=== PATIENT | female | born 1970 | race Caucasian/White ===

== ENCOUNTER 2021-04-22 15:35 | Inpatient (IN) ==
[2021-04-22] MEDS ORDERED: cefTRIAXone 1,000 MG in Water for inj. (sterile) 10 ML IVP ONE (16:56)
[2021-04-22] MEDS ORDERED: 0.9 % Sodium Chloride 1,000 ML IVC ONE ×2 (16:56→23:15)
[2021-04-22] MEDS ORDERED: Azithromycin 500 MG in 0.9 % Sodium Chloride 250 ML IVPB ONE (16:56)
[2021-04-22] MEDS ORDERED: MetroNIDAZOLE 500 MG/100 ML 500 MG/100 ML BAG IVPB ONE (16:57)
[2021-04-22 17:36] LABS: Hematocrit 35.5 % (35.3-44.9); Hemoglobin 12.1 g/dL (11.5-15.4); Mean Corpuscular HGB Conc 34.1 g/dL (31.6-35.5); Mean Corpuscular Hemoglobin 28.3 pg (28.0-33.3); Mean Corpuscular Volume 82.9 fL (83.0-100.0); Mean Platelet Volume 10.1 fL (9.4-12.4); Platelet Count 142 K/mcL (140-400); Red Blood Count 4.28 M/mcL (3.82-4.97); Red Cell Distribution Width 13.1 % (11.5-14.5); White Blood Count 3.2 K/mcL (4.3-11.1)
[2021-04-22 17:44] LABS: INR 1.3; Prothrombin Time 14.4 Seconds (9.4-12.1)
[2021-04-22 17:46] LABS: Activated Partial Thrombo Time 37.2 Seconds (26.0-36.0)
[2021-04-22 17:58] LABS: BUN/Creatinine Ratio 14 (6-26); Blood Urea Nitrogen 19 mg/dL (6-20); Calcium 8.9 mg/dL (8.6-10.3); Carbon Dioxide 22 mEq/L (23-29); Chloride 95 mEq/L (98-107); Glucose 193 mg/dL (70-105); Osmolality,Calculated 284 (280-300); Potassium 3.2 mEq/L (3.5-5.1); Sodium 133 mEq/L (136-145); Troponin I < 0.03 ng/mL (< 0.04); eGFR For African Americans 51 (> 60); eGFR For Non-African Americans 42 (> 60)
[2021-04-22 18:11] LABS: Lymphocytes # 0.8 K/mcL (0.6-4.6); Monocytes # 0.1 K/mcL (0.0-1.3); Neutrophils # 2.3 K/mcL (1.6-8.9); Reactive Lymphocytes Present (Not Present)
[2021-04-22 18:12] LABS: Platelet Estimate Normal (Normal); Toxic Granulation Present (Not Present)
[2021-04-22 19:56] LABS: Amorphous Sediment,Urine Few per hpf (None-Few); Bilirubin,Urine Negative (Negative); Blood,Urine Trace (Negative); Clarity,Urine Turbid (Clear); Color,Urine Yellow (Yellow); Glucose,Urine (UA) Normal (Normal); Ketones,Urine 10 mg/dL (Negative); Leukocyte Esterase,Urine Negative (Negative); Mucus,Urine Few per lpf (None-Few); Nitrite,Urine Negative (Negative); PH,Urine 5.5 pH Units (5.0-8.0); Protein,Urine 200 mg/dL (Neg-Trace); Specific Gravity,Urine 1.021 (1.010-1.025); Squamous Epithelial Cell,Urine Few per hpf (None-Few); Urobilinogen,Urine Normal (Normal); WBC,Urine 0-3 per hpf (0-3)
[2021-04-22] MEDS ORDERED: Naloxone 0.4 MG/ML INJ IVP PRN (20:50)
[2021-04-22] MEDS ORDERED: Melatonin 3 MG TABLET PO PRN (20:50)
[2021-04-22 21:31] LABS: Alanine Aminotransferase 45 Units/L (7-52); Albumin/Globulin Ratio 1.1 (1.1-2.2); Alkaline Phosphatase 82 Units/L (34-104); Aspartate Amino Transferase 70 Units/L (13-39); Bilirubin,Direct 0.3 mg/dL (0.0-0.2); Bilirubin,Indirect 0.2 mg/dL (0.0-1.0); Bilirubin,Total 0.5 mg/dL (0.3-1.0); Globulin 3.7 g/dL (2.4-3.5); Total Protein 7.7 g/dL (6.4-8.9)
[2021-04-22] MEDS ORDERED: *HR* Dextrose 50 % in Water (Syg) 50 ML SYRINGE IVP PRN (22:47)
[2021-04-22] MEDS ORDERED: D5% in Water 1,000 ML IVC PRN (22:47)
[2021-04-22] MEDS ORDERED: Dextrose Gel 15 GM/37.5 ML TUBE PO PRN ×2 (22:47)
[2021-04-22] MEDS ORDERED: 0.9 % Sodium Chloride 1,000 ML IVC SCH (23:15)
[2021-04-23 01:27] LABS: Basophils % 0.6 %; Hematocrit 30.2 % (35.3-44.9); Immature Granulocytes % 0.6 % (0-4); Lymphocytes # 0.5 K/mcL (0.6-4.6); Lymphocytes % 29.3 %; Mean Corpuscular HGB Conc 31.1 g/dL (31.6-35.5); Mean Corpuscular Hemoglobin 26.9 pg (28.0-33.3); Mean Corpuscular Volume 86.3 fL (83.0-100.0); Mean Platelet Volume 9.5 fL (9.4-12.4); Monocytes # 0.1 K/mcL (0.0-1.3); Monocytes % 5.5 %; Neutrophils # 1.2 K/mcL (1.6-8.9); Platelet Count 110 K/mcL (140-400); Red Cell Distribution Width 13.2 % (11.5-14.5); White Blood Count 1.8 K/mcL (4.3-11.1)
[2021-04-23 01:28] LABS: Hemoglobin 9.4 g/dL (11.5-15.4)
[2021-04-23 01:43] LABS: Calcium 7.4 mg/dL (8.6-10.3); Potassium 3.9 mEq/L (3.5-5.1)
[2021-04-23] MEDS ORDERED: Calcium Chloride 1,000 MG in 0.9 % Sodium Chloride 100 ML IVPB ONE (02:01)
[2021-04-23 02:03] LABS: Platelet Estimate Slight Decrease (Normal); Reactive Lymphocytes Present (Not Present); Toxic Granulation Present (Not Present)
[2021-04-23] MEDS ORDERED: *HR* Enoxaparin 40 MG/0.4 ML SYRINGE SQ SCH (06:00)
[2021-04-23 07:06] LABS: Ferritin 281 ng/mL (10-120); Iron 17 mcg/dL (50-170)
[2021-04-23 10:05] LABS: Folate > 22.3 ng/mL (3.0-16.0); Vitamin B12 1109 pg/mL (250-1100); Vitamin D 25 Hydroxy 64 ng/mL (30-80)
[2021-04-23] MEDS: Metoprolol XL (24 HR) Succ 50 MG TAB.ER.24H PO SCH (10:30)
[2021-04-23] MEDS: Gabapentin 100 MG CAPSULE PO SCH ×3 (10:31→21:54)
[2021-04-23] MEDS: Azithromycin 500 MG in 0.9 % Sodium Chloride 250 ML IVPB SCH (10:32)
[2021-04-23] MEDS: cefTRIAXone 1,000 MG in Water for inj. (sterile) 10 ML IVP SCH (10:34)
[2021-04-23] MEDS: Insulin LISPRO 300 UNITS/3 ML VIAL SUBQ SCH ×4 (10:34→21:57)
[2021-04-23] MEDS: Famotidine 20 MG TABLET PO SCH (21:55)
[2021-04-23] MEDS: Benzonatate 100 MG CAPSULE PO PRN (23:15)
[2021-04-23] MEDS: Acetaminophen 325 MG TABLET PO PRN (23:35)
[2021-04-24] MEDS: cefTRIAXone 1,000 MG in Water for inj. (sterile) 10 ML IVP SCH (07:52)
[2021-04-24] MEDS: Gabapentin 100 MG CAPSULE PO SCH ×3 (07:52→20:58)
[2021-04-24] MEDS: Metoprolol XL (24 HR) Succ 50 MG TAB.ER.24H PO SCH (07:52)
[2021-04-24] MEDS: Azithromycin 500 MG in 0.9 % Sodium Chloride 250 ML IVPB SCH (07:54)
[2021-04-24] MEDS: Insulin LISPRO 300 UNITS/3 ML VIAL SUBQ SCH ×4 (07:59→20:57)
[2021-04-24] MEDS: Benzonatate 100 MG CAPSULE PO PRN (12:01)
[2021-04-24] MEDS: Acetaminophen 325 MG TABLET PO PRN (12:01)
[2021-04-24] MEDS: Famotidine 20 MG TABLET PO SCH (20:58)
[2021-04-25 06:56] LABS: Hematocrit 31.1 % (35.3-44.9); Hemoglobin 9.7 g/dL (11.5-15.4); Immature Granulocytes % 1.1 % (0-4); Lymphocytes # 0.5 K/mcL (0.6-4.6); Mean Corpuscular HGB Conc 31.2 g/dL (31.6-35.5); Mean Corpuscular Hemoglobin 26.8 pg (28.0-33.3); Mean Corpuscular Volume 85.9 fL (83.0-100.0); Mean Platelet Volume 9.7 fL (9.4-12.4); Monocytes # 0.1 K/mcL (0.0-1.3); Neutrophils # 2.8 K/mcL (1.6-8.9); Platelet Count 163 K/mcL (140-400); Red Blood Count 3.62 M/mcL (3.82-4.97); Red Cell Distribution Width 13.2 % (11.5-14.5); Segmented Neutrophils % 80.9 %
[2021-04-25 07:07] LABS: % Iron Saturation 7 % (15-50); Transferrin 176 mg/dL (200-400)
[2021-04-25 07:15] LABS: White Blood Count 3.5 K/mcL (4.3-11.1)
[2021-04-25 07:19] LABS: BUN/Creatinine Ratio 24 (6-26); Blood Urea Nitrogen 24 mg/dL (6-20); Calcium 8.7 mg/dL (8.6-10.3); Carbon Dioxide 26 mEq/L (23-29); Chloride 105 mEq/L (98-107); Glucose 230 mg/dL (70-105); Osmolality,Calculated 301 (280-300); Potassium 3.9 mEq/L (3.5-5.1); Sodium 140 mEq/L (136-145); eGFR For African Americans > 60 (> 60); eGFR For Non-African Americans 58 (> 60)
[2021-04-25] MEDS: Metoprolol XL (24 HR) Succ 50 MG TAB.ER.24H PO SCH (09:00)
[2021-04-25] MEDS: Gabapentin 100 MG CAPSULE PO SCH ×3 (09:00→19:35)
[2021-04-25] MEDS: Insulin LISPRO 300 UNITS/3 ML VIAL SUBQ SCH ×4 (09:09→19:46)
[2021-04-25] MEDS: Acetaminophen 325 MG TABLET PO PRN (09:12)
[2021-04-25] MEDS: cefTRIAXone 1,000 MG in Water for inj. (sterile) 10 ML IVP SCH (09:16)
[2021-04-25] MEDS: Azithromycin 500 MG in 0.9 % Sodium Chloride 250 ML IVPB SCH (09:17)
[2021-04-25] MEDS: Famotidine 20 MG TABLET PO SCH (19:35)
[2021-04-26 05:19] LABS: Hemoglobin 9.5 g/dL (11.5-15.4); Immature Granulocytes % 0.7 % (0-4); Lymphocytes # 0.5 K/mcL (0.6-4.6); Lymphocytes % 11.6 %; Mean Corpuscular HGB Conc 32.8 g/dL (31.6-35.5); Mean Corpuscular Hemoglobin 27.9 pg (28.0-33.3); Mean Platelet Volume 9.6 fL (9.4-12.4); Monocytes # 0.2 K/mcL (0.0-1.3); Monocytes % 4.2 %; Neutrophils # 3.4 K/mcL (1.6-8.9); Platelet Count 191 K/mcL (140-400); Red Blood Count 3.41 M/mcL (3.82-4.97); Red Cell Distribution Width 13.2 % (11.5-14.5); Segmented Neutrophils % 83.5 %; White Blood Count 4.1 K/mcL (4.3-11.1)
[2021-04-26] MEDS: Gabapentin 100 MG CAPSULE PO SCH ×3 (08:31→21:05)
[2021-04-26] MEDS: Metoprolol XL (24 HR) Succ 50 MG TAB.ER.24H PO SCH (08:31)
[2021-04-26] MEDS: Insulin LISPRO 300 UNITS/3 ML VIAL SUBQ SCH ×4 (08:32→21:05)
[2021-04-26] MEDS: cefTRIAXone 1,000 MG in Water for inj. (sterile) 10 ML IVP SCH (08:32)
[2021-04-26] MEDS: Azithromycin 500 MG in 0.9 % Sodium Chloride 250 ML IVPB SCH (08:33)
[2021-04-26] MEDS: Benzonatate 100 MG CAPSULE PO PRN ×2 (09:08→19:11)
[2021-04-26] MEDS: Acetaminophen 325 MG TABLET PO PRN (09:08)
[2021-04-26] MEDS ORDERED: Isovue-370 500 ML BOTTLE IVP ONE (09:29)
[2021-04-26] MEDS: Famotidine 20 MG TABLET PO SCH (21:04)
[2021-04-27 07:22] LABS: Basophils % 0.3 %; Hematocrit 31.5 % (35.3-44.9); Hemoglobin 10.1 g/dL (11.5-15.4); Immature Granulocytes % 1.6 % (0-4); Lymphocytes # 0.7 K/mcL (0.6-4.6); Lymphocytes % 17.2 %; Mean Corpuscular HGB Conc 32.1 g/dL (31.6-35.5); Mean Corpuscular Hemoglobin 27.2 pg (28.0-33.3); Mean Corpuscular Volume 84.9 fL (83.0-100.0); Mean Platelet Volume 9.4 fL (9.4-12.4); Monocytes # 0.2 K/mcL (0.0-1.3); Neutrophils # 2.9 K/mcL (1.6-8.9); Platelet Count 236 K/mcL (140-400); Red Blood Count 3.71 M/mcL (3.82-4.97); Red Cell Distribution Width 13.2 % (11.5-14.5); Segmented Neutrophils % 75.9 %; White Blood Count 3.8 K/mcL (4.3-11.1)
[2021-04-27] MEDS ORDERED: Furosemide 20 MG/2 ML VIAL IVP ONE (07:44)
[2021-04-27 07:49] LABS: BUN/Creatinine Ratio 31 (6-26); Blood Urea Nitrogen 30 mg/dL (6-20); Calcium 8.8 mg/dL (8.6-10.3); Carbon Dioxide 25 mEq/L (23-29); Chloride 107 mEq/L (98-107); Glucose 189 mg/dL (70-105); Osmolality,Calculated 303 (280-300); Potassium 3.8 mEq/L (3.5-5.1); Sodium 141 mEq/L (136-145); eGFR For African Americans > 60 (> 60); eGFR For Non-African Americans > 60 (> 60)
[2021-04-27] MEDS: Insulin LISPRO 300 UNITS/3 ML VIAL SUBQ SCH ×4 (10:32→22:05)
[2021-04-27] MEDS: cefTRIAXone 1,000 MG in Water for inj. (sterile) 10 ML IVP SCH (10:53)
[2021-04-27] MEDS: Azithromycin 500 MG in 0.9 % Sodium Chloride 250 ML IVPB SCH (10:54)
[2021-04-27] MEDS: Gabapentin 100 MG CAPSULE PO SCH ×4 (10:55→22:00)
[2021-04-27] MEDS: Metoprolol XL (24 HR) Succ 50 MG TAB.ER.24H PO SCH ×2 (10:55→11:35)
[2021-04-27] MEDS: Budesonide/Formoterol 160/4.5 1 PUFF INH IH SCH ×2 (10:57→20:36)
[2021-04-27] MEDS: Acetaminophen 325 MG TABLET PO PRN (17:38)
[2021-04-27] MEDS: Benzonatate 100 MG CAPSULE PO PRN (17:39)
[2021-04-27] MEDS: Famotidine 20 MG TABLET PO SCH (22:00)
[2021-04-28 01:17] LABS: Basophils % 0.3 %; Hematocrit 29.9 % (35.3-44.9); Hemoglobin 9.7 g/dL (11.5-15.4); Immature Granulocytes % 4.7 % (0-4); Lymphocytes # 0.5 K/mcL (0.6-4.6); Lymphocytes % 17.3 %; Mean Corpuscular HGB Conc 32.4 g/dL (31.6-35.5); Mean Corpuscular Volume 86.2 fL (83.0-100.0); Mean Platelet Volume 9.1 fL (9.4-12.4); Monocytes # 0.2 K/mcL (0.0-1.3); Monocytes % 5.3 %; Neutrophils # 2.2 K/mcL (1.6-8.9); Platelet Count 236 K/mcL (140-400); Red Blood Count 3.47 M/mcL (3.82-4.97); Red Cell Distribution Width 13.2 % (11.5-14.5); Segmented Neutrophils % 72.4 %
[2021-04-28 04:46] LABS: Alanine Aminotransferase 167 Units/L (7-52); Albumin 3.1 g/dL (3.5-5.7); Alkaline Phosphatase 116 Units/L (34-104); Aspartate Amino Transferase 106 Units/L (13-39); BUN/Creatinine Ratio 36 (6-26); Bilirubin,Total 0.3 mg/dL (0.3-1.0); Blood Urea Nitrogen 34 mg/dL (6-20); Calcium 8.5 mg/dL (8.6-10.3); Carbon Dioxide 23 mEq/L (23-29); Chloride 107 mEq/L (98-107); Globulin 3.2 g/dL (2.4-3.5); Glucose 203 mg/dL (70-105); Osmolality,Calculated 303 (280-300); Potassium 4.1 mEq/L (3.5-5.1); Sodium 140 mEq/L (136-145); Total Protein 6.3 g/dL (6.4-8.9); eGFR For African Americans > 60 (> 60); eGFR For Non-African Americans > 60 (> 60)
[2021-04-28] MEDS: Metoprolol XL (24 HR) Succ 50 MG TAB.ER.24H PO SCH (07:42)
[2021-04-28] MEDS: cefTRIAXone 1,000 MG in Water for inj. (sterile) 10 ML IVP SCH (07:42)
[2021-04-28] MEDS: Gabapentin 100 MG CAPSULE PO SCH ×4 (07:42→21:52)
[2021-04-28] MEDS: Azithromycin 500 MG in 0.9 % Sodium Chloride 250 ML IVPB SCH (07:44)
[2021-04-28] MEDS: Insulin LISPRO 300 UNITS/3 ML VIAL SUBQ SCH ×4 (07:54→21:52)
[2021-04-28] MEDS: Budesonide/Formoterol 160/4.5 1 PUFF INH IH SCH ×2 (10:44→19:39)
[2021-04-28] MEDS: Benzonatate 100 MG CAPSULE PO PRN (17:07)
[2021-04-28] MEDS: Famotidine 20 MG TABLET PO SCH (21:52)
[2021-04-29 01:24] LABS: Hematocrit 30.5 % (35.3-44.9); Hemoglobin 10.1 g/dL (11.5-15.4); Immature Granulocytes % 1.1 % (0-4); Lymphocytes # 0.5 K/mcL (0.6-4.6); Lymphocytes % 14.2 %; Mean Corpuscular HGB Conc 33.1 g/dL (31.6-35.5); Mean Corpuscular Hemoglobin 27.7 pg (28.0-33.3); Mean Corpuscular Volume 83.6 fL (83.0-100.0); Mean Platelet Volume 8.9 fL (9.4-12.4); Monocytes # 0.1 K/mcL (0.0-1.3); Monocytes % 3.4 %; Neutrophils # 3.1 K/mcL (1.6-8.9); Platelet Count 298 K/mcL (140-400); Red Blood Count 3.65 M/mcL (3.82-4.97); Red Cell Distribution Width 12.9 % (11.5-14.5); Segmented Neutrophils % 81.3 %; White Blood Count 3.8 K/mcL (4.3-11.1)
[2021-04-29] MEDS: Budesonide/Formoterol 160/4.5 1 PUFF INH IH SCH ×2 (08:15→20:02)
[2021-04-29] MEDS: Gabapentin 100 MG CAPSULE PO SCH ×3 (08:30→21:09)
[2021-04-29] MEDS: Azithromycin 500 MG in 0.9 % Sodium Chloride 250 ML IVPB SCH (08:30)
[2021-04-29] MEDS: Insulin LISPRO 300 UNITS/3 ML VIAL SUBQ SCH ×4 (08:30→21:09)
[2021-04-29] MEDS: Metoprolol XL (24 HR) Succ 50 MG TAB.ER.24H PO SCH (08:30)
[2021-04-29] MEDS: cefTRIAXone 1,000 MG in Water for inj. (sterile) 10 ML IVP SCH (08:50)
[2021-04-29] MEDS: Famotidine 20 MG TABLET PO SCH (21:06)
[2021-04-30 06:16] LABS: Basophils % 0.2 %; Hematocrit 31.7 % (35.3-44.9); Hemoglobin 10.4 g/dL (11.5-15.4); Immature Granulocytes % 1.7 % (0-4); Lymphocytes # 0.7 K/mcL (0.6-4.6); Lymphocytes % 17.6 %; Mean Corpuscular HGB Conc 32.8 g/dL (31.6-35.5); Mean Corpuscular Hemoglobin 27.6 pg (28.0-33.3); Mean Corpuscular Volume 84.1 fL (83.0-100.0); Mean Platelet Volume 8.8 fL (9.4-12.4); Monocytes # 0.1 K/mcL (0.0-1.3); Monocytes % 2.9 %; Neutrophils # 3.3 K/mcL (1.6-8.9); Platelet Count 255 K/mcL (140-400); Red Blood Count 3.77 M/mcL (3.82-4.97); Segmented Neutrophils % 77.6 %; White Blood Count 4.2 K/mcL (4.3-11.1)
[2021-04-30 06:42] LABS: BUN/Creatinine Ratio 31 (6-26); Blood Urea Nitrogen 30 mg/dL (6-20); Calcium 8.7 mg/dL (8.6-10.3); Carbon Dioxide 26 mEq/L (23-29); Chloride 108 mEq/L (98-107); Glucose 126 mg/dL (70-105); Osmolality,Calculated 300 (280-300); Potassium 3.9 mEq/L (3.5-5.1); Sodium 141 mEq/L (136-145); eGFR For African Americans > 60 (> 60); eGFR For Non-African Americans 60 (> 60)
[2021-04-30] MEDS: Insulin LISPRO 300 UNITS/3 ML VIAL SUBQ SCH ×4 (07:13→20:02)
[2021-04-30] MEDS: Gabapentin 100 MG CAPSULE PO SCH ×3 (08:39→20:01)
[2021-04-30] MEDS: Azithromycin 500 MG in 0.9 % Sodium Chloride 250 ML IVPB SCH (08:39)
[2021-04-30] MEDS: Metoprolol XL (24 HR) Succ 50 MG TAB.ER.24H PO SCH (08:39)
[2021-04-30] MEDS ORDERED: Isovue-370 500 ML BOTTLE IVP ONE (09:02)
[2021-04-30] MEDS ORDERED: *HR* Enoxaparin 30 MG/0.3 ML SYRINGE SQ SCH (09:04)
[2021-04-30] MEDS: Budesonide/Formoterol 160/4.5 1 PUFF INH IH SCH ×2 (09:15→20:54)
[2021-04-30] MEDS: cefTRIAXone 1,000 MG in Water for inj. (sterile) 10 ML IVP SCH (09:29)
[2021-04-30] MEDS ORDERED: *HR* Heparin 5,000 UNIT/ML VIAL IVP ONE (15:19)
[2021-04-30] MEDS ORDERED: *HR* Heparin 5,000 UNIT/ML VIAL IVP PRN ×2 (15:19)
[2021-04-30 16:47] LABS: Heparin anti-factor XA UFH 0.06 IU/mL (0.30-0.70); INR 1.2; Prothrombin Time 12.9 Seconds (9.4-12.1)
[2021-04-30 16:49] LABS: Activated Partial Thrombo Time 25.7 Seconds (26.0-36.0)
[2021-04-30] MEDS ORDERED: *HR* Enoxaparin 80 MG/0.8 ML SYRINGE SQ SCH (18:00)
[2021-04-30] MEDS: Heparin 25,000 UNIT/250 ML 25,000 UNIT/250 ML IV.SOLN IVC SCH (18:03)
[2021-04-30] MEDS: Famotidine 20 MG TABLET PO SCH (20:01)
[2021-04-30] MEDS ORDERED: *HR* LORazepam 2 MG/ML VIAL IVP ONE (22:19)
[2021-05-01 02:24] LABS: Basophils % 0.3 %; Hematocrit 31.1 % (35.3-44.9); Immature Granulocytes % 2.8 % (0-4); Lymphocytes # 0.4 K/mcL (0.6-4.6); Lymphocytes % 10.7 %; Mean Corpuscular HGB Conc 32.2 g/dL (31.6-35.5); Mean Corpuscular Volume 84.1 fL (83.0-100.0); Mean Platelet Volume 9.4 fL (9.4-12.4); Monocytes # 0.1 K/mcL (0.0-1.3); Platelet Count 275 K/mcL (140-400); Segmented Neutrophils % 84.2 %; White Blood Count 3.6 K/mcL (4.3-11.1)
[2021-05-01 02:41] LABS: BUN/Creatinine Ratio 37 (6-26); Blood Urea Nitrogen 36 mg/dL (6-20); Calcium 8.9 mg/dL (8.6-10.3); Carbon Dioxide 22 mEq/L (23-29); Chloride 106 mEq/L (98-107); Glucose 259 mg/dL (70-105); Osmolality,Calculated 303 (280-300); Potassium 4.1 mEq/L (3.5-5.1); Sodium 138 mEq/L (136-145); eGFR For African Americans > 60 (> 60); eGFR For Non-African Americans 60 (> 60)
[2021-05-01] MEDS ORDERED: *HR* LORazepam 2 MG/ML VIAL IVP ONE (04:13)
[2021-05-01] MEDS ORDERED: *HR* Enoxaparin 30 MG/0.3 ML SYRINGE SQ SCH (06:00)
[2021-05-01 09:22] LABS: Albumin 3.2 g/dL (3.5-5.7); Albumin/Globulin Ratio 0.9 (1.1-2.2); Bilirubin,Direct 0.2 mg/dL (0.0-0.2); Bilirubin,Indirect 0.2 mg/dL (0.0-1.0); Bilirubin,Total 0.4 mg/dL (0.3-1.0); Globulin 3.6 g/dL (2.4-3.5); Total Protein 6.8 g/dL (6.4-8.9)
[2021-05-01] MEDS: Insulin LISPRO 300 UNITS/3 ML VIAL SUBQ SCH ×4 (10:17→20:28)
[2021-05-01] MEDS: Azithromycin 500 MG in 0.9 % Sodium Chloride 250 ML IVPB SCH (10:36)
[2021-05-01] MEDS: cefTRIAXone 1,000 MG in Water for inj. (sterile) 10 ML IVP SCH (10:38)
[2021-05-01] MEDS: Gabapentin 100 MG CAPSULE PO SCH ×3 (10:38→20:08)
[2021-05-01] MEDS: Metoprolol XL (24 HR) Succ 50 MG TAB.ER.24H PO SCH (10:38)
[2021-05-01] MEDS: Budesonide/Formoterol 160/4.5 1 PUFF INH IH SCH ×2 (11:08→21:04)
[2021-05-01] MEDS: Famotidine 20 MG TABLET PO SCH (20:08)
[2021-05-01] MEDS: Heparin 25,000 UNIT/250 ML 25,000 UNIT/250 ML IV.SOLN IVC SCH (22:54)
[2021-05-02 06:33] LABS: Hematocrit 31.9 % (35.3-44.9); Hemoglobin 10.6 g/dL (11.5-15.4); Immature Granulocytes % 1.2 % (0-4); Lymphocytes # 0.6 K/mcL (0.6-4.6); Lymphocytes % 11.4 %; Mean Corpuscular HGB Conc 33.2 g/dL (31.6-35.5); Mean Corpuscular Hemoglobin 27.7 pg (28.0-33.3); Mean Corpuscular Volume 83.3 fL (83.0-100.0); Mean Platelet Volume 9.3 fL (9.4-12.4); Monocytes # 0.2 K/mcL (0.0-1.3); Monocytes % 3.9 %; Platelet Count 265 K/mcL (140-400); Red Blood Count 3.83 M/mcL (3.82-4.97); Red Cell Distribution Width 12.8 % (11.5-14.5); Segmented Neutrophils % 83.5 %; White Blood Count 4.8 K/mcL (4.3-11.1)
[2021-05-02 06:42] LABS: BUN/Creatinine Ratio 36 (6-26); Blood Urea Nitrogen 32 mg/dL (6-20); Carbon Dioxide 24 mEq/L (23-29); Chloride 108 mEq/L (98-107); Glucose 170 mg/dL (70-105); Osmolality,Calculated 301 (280-300); Sodium 140 mEq/L (136-145); eGFR For African Americans > 60 (> 60); eGFR For Non-African Americans > 60 (> 60)
[2021-05-02] MEDS: Insulin LISPRO 300 UNITS/3 ML VIAL SUBQ SCH ×5 (08:37→21:52)
[2021-05-02] MEDS: Metoprolol XL (24 HR) Succ 50 MG TAB.ER.24H PO SCH (08:38)
[2021-05-02] MEDS: Aspirin 81 MG TAB.CHEW PO SCH (08:38)
[2021-05-02] MEDS: Gabapentin 100 MG CAPSULE PO SCH ×3 (08:38→21:51)
[2021-05-02] MEDS: Budesonide/Formoterol 160/4.5 1 PUFF INH IH SCH ×2 (11:02→20:07)
[2021-05-02 18:29] LABS: ABG Base Excess -5 mEq/L (-2 to 3); ABG HCO3 18 mEq/L (21-27); ABG Oxygen Saturation 85 % (95-98); ABG PCO2 26 mmHg (35-45); ABG PH 7.44 pH Units (7.32-7.45); ABG PO2 47 mmHg (85-104); ABG TCO2 19 mEq/L (20-26); Blood Gas Modality NIV
[2021-05-02] MEDS ORDERED: Insulin DETEMIR 100 UNIT/ML X5UNITS SUBQ SCH (21:00)
[2021-05-02] MEDS ORDERED: Saline Nasal Spray 44 ML BOTTLE NS PRN (21:38)
[2021-05-02] MEDS: Famotidine 20 MG TABLET PO SCH (21:51)
[2021-05-02] MEDS: Acetaminophen 325 MG TABLET PO PRN (22:38)
[2021-05-03] MEDS: *HR* Enoxaparin 40 MG/0.4 ML SYRINGE SQ SCH (05:38)
[2021-05-03] MEDS: Budesonide/Formoterol 160/4.5 1 PUFF INH IH SCH ×2 (08:19→20:03)
[2021-05-03] MEDS: Gabapentin 100 MG CAPSULE PO SCH (10:31)
[2021-05-03] MEDS: Aspirin 81 MG TAB.CHEW PO SCH (10:31)
[2021-05-03] MEDS: Metoprolol XL (24 HR) Succ 50 MG TAB.ER.24H PO SCH (10:31)
[2021-05-03] MEDS: Insulin LISPRO 300 UNITS/3 ML VIAL SUBQ SCH ×4 (10:36→22:26)
[2021-05-03] MEDS ORDERED: Insulin DETEMIR 100 UNIT/ML X5UNITS SUBQ SCH (21:00)
[2021-05-03] MEDS: Famotidine 20 MG TABLET PO SCH (22:26)
[2021-05-04] MEDS: *HR* Enoxaparin 40 MG/0.4 ML SYRINGE SQ SCH (04:36)
[2021-05-04] MEDS: Budesonide/Formoterol 160/4.5 1 PUFF INH IH SCH ×2 (08:19→19:50)
[2021-05-04] MEDS: Insulin LISPRO 300 UNITS/3 ML VIAL SUBQ SCH ×4 (10:42→20:41)
[2021-05-04] MEDS: Aspirin 81 MG TAB.CHEW PO SCH (10:43)
[2021-05-04] MEDS: Metoprolol XL (24 HR) Succ 50 MG TAB.ER.24H PO SCH (10:48)
[2021-05-04] MEDS: Famotidine 20 MG TABLET PO SCH (20:35)
[2021-05-04] MEDS: Insulin DETEMIR 100 UNIT/ML X5UNITS SUBQ SCH (20:41)
[2021-05-05] MEDS: *HR* Enoxaparin 40 MG/0.4 ML SYRINGE SQ SCH (06:17)
[2021-05-05] MEDS: Insulin LISPRO 300 UNITS/3 ML VIAL SUBQ SCH ×4 (08:55→20:59)
[2021-05-05] MEDS: Metoprolol XL (24 HR) Succ 50 MG TAB.ER.24H PO SCH ×2 (08:56→09:04)
[2021-05-05] MEDS: Aspirin 81 MG TAB.CHEW PO SCH (08:56)
[2021-05-05 10:30] LABS: Hematocrit 34.9 % (35.3-44.9); Hemoglobin 11.3 g/dL (11.5-15.4); Immature Granulocytes % 0.6 % (0-4); Lymphocytes # 0.7 K/mcL (0.6-4.6); Lymphocytes % 8.8 %; Mean Corpuscular HGB Conc 32.4 g/dL (31.6-35.5); Mean Corpuscular Hemoglobin 27.4 pg (28.0-33.3); Mean Corpuscular Volume 84.7 fL (83.0-100.0); Monocytes # 0.3 K/mcL (0.0-1.3); Monocytes % 3.2 %; Neutrophils # 6.8 K/mcL (1.6-8.9); Platelet Count 256 K/mcL (140-400); Red Blood Count 4.12 M/mcL (3.82-4.97); Red Cell Distribution Width 13.2 % (11.5-14.5); Segmented Neutrophils % 87.4 %
[2021-05-05 10:40] LABS: White Blood Count 7.8 K/mcL (4.3-11.1)
[2021-05-05 10:50] LABS: Calcium 8.8 mg/dL (8.6-10.3); Potassium 3.9 mEq/L (3.5-5.1)
[2021-05-05] MEDS: Budesonide/Formoterol 160/4.5 1 PUFF INH IH SCH ×2 (11:22→20:03)
[2021-05-05] MEDS: Acetaminophen 325 MG TABLET PO PRN (14:56)
[2021-05-05] MEDS: Famotidine 20 MG TABLET PO SCH (20:55)
[2021-05-05] MEDS: Insulin DETEMIR 100 UNIT/ML X5UNITS SUBQ SCH (20:59)
[2021-05-06] MEDS: *HR* Enoxaparin 40 MG/0.4 ML SYRINGE SQ SCH (04:42)
[2021-05-06 06:17] LABS: Hematocrit 35.1 % (35.3-44.9); Immature Granulocytes % 0.7 % (0-4); Lymphocytes # 0.9 K/mcL (0.6-4.6); Lymphocytes % 11.3 %; Mean Corpuscular HGB Conc 31.3 g/dL (31.6-35.5); Mean Corpuscular Hemoglobin 26.6 pg (28.0-33.3); Mean Platelet Volume 9.4 fL (9.4-12.4); Monocytes # 0.3 K/mcL (0.0-1.3); Neutrophils # 6.4 K/mcL (1.6-8.9); Platelet Count 207 K/mcL (140-400); Red Blood Count 4.13 M/mcL (3.82-4.97); Red Cell Distribution Width 13.1 % (11.5-14.5); White Blood Count 7.7 K/mcL (4.3-11.1)
[2021-05-06 06:41] LABS: BUN/Creatinine Ratio 35 (6-26); Blood Urea Nitrogen 37 mg/dL (6-20); Calcium 8.8 mg/dL (8.6-10.3); Carbon Dioxide 25 mEq/L (23-29); Chloride 106 mEq/L (98-107); Glucose 112 mg/dL (70-105); Osmolality,Calculated 297 (280-300); Potassium 3.8 mEq/L (3.5-5.1); Sodium 139 mEq/L (136-145); eGFR For African Americans > 60 (> 60); eGFR For Non-African Americans 54 (> 60)
[2021-05-06] MEDS: Budesonide/Formoterol 160/4.5 1 PUFF INH IH SCH ×2 (08:10→21:41)
[2021-05-06] MEDS ORDERED: *HR* LORazepam 2 MG/ML VIAL IVP STA (08:25)
[2021-05-06] MEDS ORDERED: *HR* LORazepam 2 MG/ML VIAL ONE (08:25)
[2021-05-06] MEDS ORDERED: *HR* Heparin 5,000 UNIT/ML VIAL IVP PRN ×2 (09:23)
[2021-05-06] MEDS ORDERED: *HR* Heparin 5,000 UNIT/ML VIAL IVP ONE (09:23)
[2021-05-06] MEDS ORDERED: *HR* FentaNYL (PF) 100 MCG/2 ML VIAL IVP ONE (09:46)
[2021-05-06] MEDS ORDERED: 0.9 % Sodium Chloride 1,000 ML ONE (09:49)
[2021-05-06] MEDS: Insulin LISPRO 300 UNITS/3 ML VIAL SUBQ SCH ×2 (10:15→18:23)
[2021-05-06] MEDS: Aspirin 81 MG TAB.CHEW PO SCH (10:16)
[2021-05-06] MEDS: Metoprolol XL (24 HR) Succ 50 MG TAB.ER.24H PO SCH (10:16)
[2021-05-06] MEDS ORDERED: *HR* Midazolam HCl 2 MG/2 ML VIAL IVP ONE (12:23)
[2021-05-06] MEDS ORDERED: *HR* Midazolam HCl 5 MG/5 ML VIAL IVP ONE ×2 (12:23→13:30)
[2021-05-06] MEDS ORDERED: *HR* Propofol 200 MG/20 ML VIAL IVP ONE (12:23)
[2021-05-06] MEDS ORDERED: *HR* Etomidate 20 MG/10 ML AMPUL IVP ONE (12:23)
[2021-05-06] MEDS: Furosemide 40 MG/4 ML VIAL IVP SCH ×3 (12:37→20:59)
[2021-05-06] MEDS: FentaNYL (PF) 1,000 MCG/100 ML IV.SOLN IVC SCH ×2 (13:17→17:03)
[2021-05-06] MEDS: Pantoprazole 40 MG VIAL IVP SCH (13:19)
[2021-05-06] MEDS: Heparin 25,000 UNIT/250 ML 25,000 UNIT/250 ML IV.SOLN IVC SCH (13:30)
[2021-05-06 13:50] LABS: ABG Base Excess -3 mEq/L (-2 to 3); ABG HCO3 21 mEq/L (21-27); ABG Oxygen Saturation 98 % (95-98); ABG PCO2 34 mmHg (35-45); ABG PH 7.41 pH Units (7.32-7.45); ABG PO2 95 mmHg (85-104); ABG TCO2 22 mEq/L (20-26); Blood Gas VT 380 cc
[2021-05-06] MEDS ORDERED: Artificial Tears SOLN 15 ML BOTTLE BOTH EYES PRN (14:00)
[2021-05-06 14:54] LABS: Amorphous Sediment,Urine Few per hpf (None-Few); Bacteria,Urine Few per hpf (None-Few); Bilirubin,Urine Negative (Negative); Blood,Urine Small (Negative); Clarity,Urine Ex.Turbid (Clear); Color,Urine Light-Orange (Yellow); Glucose,Urine (UA) Normal (Normal); Ketones,Urine 10 mg/dL (Negative); Leukocyte Esterase,Urine Negative (Negative); Mucus,Urine Few per lpf (None-Few); Nitrite,Urine Negative (Negative); Protein,Urine 100 mg/dL (Neg-Trace); RBC,Urine 0-3 per hpf (0-3); Specific Gravity,Urine 1.028 (1.010-1.025); Squamous Epithelial Cell,Urine Few per hpf (None-Few); Urobilinogen,Urine Normal (Normal); WBC,Urine 0-3 per hpf (0-3)
[2021-05-06] MEDS: Artificial Tears SOLN 15 ML BOTTLE BOTH EYES SCH ×2 (17:01→20:51)
[2021-05-06 20:44] LABS: Heparin anti-factor XA UFH 0.95 IU/mL (0.30-0.70)
[2021-05-06] MEDS: Chlorhexidine Rinse 15 ML MOUTHWASH MM SCH (20:55)
[2021-05-06] MEDS ORDERED: Furosemide 40 MG/4 ML VIAL IVP ONE (20:59)
[2021-05-06] MEDS: Insulin DETEMIR 100 UNIT/ML X5UNITS SUBQ SCH (21:05)
[2021-05-07] MEDS: Artificial Tears SOLN 15 ML BOTTLE BOTH EYES SCH ×7 (00:04→23:51)
[2021-05-07] MEDS: Insulin LISPRO 300 UNITS/3 ML VIAL SUBQ SCH ×5 (00:06→23:51)
[2021-05-07] MEDS: FentaNYL (PF) 1,000 MCG/100 ML IV.SOLN IVC SCH ×3 (01:05→18:47)
[2021-05-07 04:05] LABS: ABG Base Excess -2 mEq/L (-2 to 3); ABG HCO3 22 mEq/L (21-27); ABG Oxygen Saturation 96 % (95-98); ABG PCO2 36 mmHg (35-45); ABG PH 7.39 pH Units (7.32-7.45); ABG PO2 85 mmHg (85-104); ABG TCO2 23 mEq/L (20-26); Blood Gas Modality ASSIST CONTROL; Blood Gas VT 380 cc
[2021-05-07 04:25] LABS: VBG Ionized Calcium 1.01 mmol/L (1.15-1.35)
[2021-05-07] MEDS: Calcium Gluconate 1gm/50mL 1 GM/50 ML BAG IVPB SCH ×2 (05:00→05:31)
[2021-05-07 05:32] LABS: Phosphorous 6.3 mg/dL (2.7-4.5)
[2021-05-07 05:52] LABS: Hematocrit 25.9 % (35.3-44.9); Lymphocytes # 0.4 K/mcL (0.6-4.6); Lymphocytes % 6.9 %; Mean Corpuscular Hemoglobin 28.9 pg (28.0-33.3); Mean Corpuscular Volume 85.2 fL (83.0-100.0); Mean Platelet Volume 9.9 fL (9.4-12.4); Monocytes # 0.2 K/mcL (0.0-1.3); Monocytes % 3.7 %; Neutrophils # 4.5 K/mcL (1.6-8.9); Platelet Count 157 K/mcL (140-400); Red Blood Count 3.04 M/mcL (3.82-4.97); Red Cell Distribution Width 13.3 % (11.5-14.5); Segmented Neutrophils % 88.4 %; White Blood Count 5.1 K/mcL (4.3-11.1)
[2021-05-07 05:54] LABS: Hemoglobin 8.8 g/dL (11.5-15.4)
[2021-05-07 06:09] LABS: Magnesium 2.1 mg/dL (1.6-2.6); Potassium 3.7 mEq/L (3.5-5.1)
[2021-05-07] MEDS: Budesonide/Formoterol 160/4.5 1 PUFF INH IH SCH ×2 (07:24→20:34)
[2021-05-07] MEDS: Norepinephrine 4 MG/254 ML IV.SOLN IVC SCH ×3 (08:21→23:54)
[2021-05-07] MEDS: Chlorhexidine Rinse 15 ML MOUTHWASH MM SCH ×2 (09:03→21:55)
[2021-05-07] MEDS: Cholecalciferol (D-3) 1,000 UNIT (25MCG) TABLET PO SCH (09:03)
[2021-05-07] MEDS: Pantoprazole 40 MG VIAL IVP SCH (09:03)
[2021-05-07] MEDS: Aspirin 81 MG TAB.CHEW GTUBE SCH (09:03)
[2021-05-07] MEDS: Furosemide 40 MG/4 ML VIAL IVP SCH ×2 (09:03→21:56)
[2021-05-07 10:51] LABS: VBG Ionized Calcium 1.27 mmol/L (1.15-1.35)
[2021-05-07] MEDS: Heparin 25,000 UNIT/250 ML 25,000 UNIT/250 ML IV.SOLN IVC SCH ×2 (20:15→21:31)
[2021-05-07] MEDS: Insulin DETEMIR 100 UNIT/ML X5UNITS SUBQ SCH (21:56)
[2021-05-08] MEDS: FentaNYL (PF) 1,000 MCG/100 ML IV.SOLN IVC SCH ×4 (02:06→23:42)
[2021-05-08] MEDS: Artificial Tears SOLN 15 ML BOTTLE BOTH EYES SCH ×6 (03:40→23:38)
[2021-05-08 03:55] LABS: ABG Base Excess -2 mEq/L (-2 to 3); ABG HCO3 23 mEq/L (21-27); ABG Oxygen Saturation 97 % (95-98); ABG PCO2 38 mmHg (35-45); ABG PH 7.39 pH Units (7.32-7.45); ABG PO2 87 mmHg (85-104); ABG TCO2 24 mEq/L (20-26); Blood Gas Modality ASSIST CONTROL; Blood Gas VT 380 cc
[2021-05-08 04:20] LABS: VBG Ionized Calcium 1.11 mmol/L (1.15-1.35)
[2021-05-08 04:57] LABS: Basophils % 0.1 %; Hematocrit 35.4 % (35.3-44.9); Hemoglobin 11.6 g/dL (11.5-15.4); Immature Granulocytes % 0.6 % (0-4); Lymphocytes # 0.7 K/mcL (0.6-4.6); Lymphocytes % 7.9 %; Mean Corpuscular HGB Conc 32.8 g/dL (31.6-35.5); Mean Corpuscular Hemoglobin 27.5 pg (28.0-33.3); Mean Corpuscular Volume 83.9 fL (83.0-100.0); Mean Platelet Volume 9.7 fL (9.4-12.4); Monocytes # 0.3 K/mcL (0.0-1.3); Monocytes % 3.8 %; Neutrophils # 7.7 K/mcL (1.6-8.9); Platelet Count 264 K/mcL (140-400); Red Blood Count 4.22 M/mcL (3.82-4.97); Red Cell Distribution Width 13.4 % (11.5-14.5); Segmented Neutrophils % 87.6 %; White Blood Count 8.8 K/mcL (4.3-11.1)
[2021-05-08 05:08] LABS: Calcium 9.4 mg/dL (8.6-10.3); Magnesium 2.4 mg/dL (1.6-2.6); Phosphorous 7.1 mg/dL (2.7-4.5); Potassium 3.4 mEq/L (3.5-5.1)
[2021-05-08] MEDS: Insulin LISPRO 300 UNITS/3 ML VIAL SUBQ SCH ×4 (05:23→23:41)
[2021-05-08] MEDS ORDERED: Isovue-370 500 ML BOTTLE IVP ONE (06:32)
[2021-05-08] MEDS: Budesonide/Formoterol 160/4.5 1 PUFF INH IH SCH ×2 (07:32→20:47)
[2021-05-08] MEDS: Pantoprazole 40 MG VIAL IVP SCH (07:43)
[2021-05-08] MEDS: Chlorhexidine Rinse 15 ML MOUTHWASH MM SCH ×2 (07:43→19:47)
[2021-05-08] MEDS: Aspirin 81 MG TAB.CHEW GTUBE SCH (07:44)
[2021-05-08] MEDS: Furosemide 40 MG/4 ML VIAL IVP SCH ×2 (07:44→19:48)
[2021-05-08] MEDS: Cholecalciferol (D-3) 1,000 UNIT (25MCG) TABLET PO SCH (07:45)
[2021-05-08] MEDS ORDERED: Lidocaine -MPF 1% 5 ML AMPUL INFILT ONE (12:34)
[2021-05-08 13:17] LABS: Calcium 9.4 mg/dL (8.6-10.3); Potassium 3.9 mEq/L (3.5-5.1)
[2021-05-08] MEDS: Calcium Gluconate 1gm/50mL 1 GM/50 ML BAG IVPB SCH ×2 (14:23→14:55)
[2021-05-08] MEDS: Phenylephrine 50 MG in 0.9 % Sodium Chloride 250 ML IVC SCH (19:08)
[2021-05-08] MEDS: Norepinephrine 4 MG/254 ML IV.SOLN IVC SCH ×3 (19:34→23:41)
[2021-05-08] MEDS: Insulin DETEMIR 100 UNIT/ML X5UNITS SUBQ SCH (20:14)
[2021-05-09] MEDS: Artificial Tears SOLN 15 ML BOTTLE BOTH EYES SCH ×6 (03:04→23:34)
[2021-05-09 04:03] LABS: Hematocrit 33.8 % (35.3-44.9); Hemoglobin 10.9 g/dL (11.5-15.4); Mean Corpuscular HGB Conc 32.2 g/dL (31.6-35.5); Mean Corpuscular Hemoglobin 27.9 pg (28.0-33.3); Mean Corpuscular Volume 86.4 fL (83.0-100.0); Mean Platelet Volume 9.4 fL (9.4-12.4); Platelet Count 278 K/mcL (140-400); Red Blood Count 3.91 M/mcL (3.82-4.97); Red Cell Distribution Width 13.8 % (11.5-14.5)
[2021-05-09 04:10] LABS: ABG Base Excess -6 mEq/L (-2 to 3); ABG HCO3 20 mEq/L (21-27); ABG Oxygen Saturation 99 % (95-98); ABG PCO2 45 mmHg (35-45); ABG PH 7.27 pH Units (7.32-7.45); ABG PO2 131 mmHg (85-104); ABG TCO2 22 mEq/L (20-26); Blood Gas Modality ASSIST CONTROL; Blood Gas VT 380 cc
[2021-05-09 04:11] LABS: VBG Ionized Calcium 1.21 mmol/L (1.15-1.35)
[2021-05-09 04:15] LABS: White Blood Count 13.5 K/mcL (4.3-11.1)
[2021-05-09 04:22] LABS: Albumin 3.1 g/dL (3.5-5.7); Albumin/Globulin Ratio 0.8 (1.1-2.2); Bilirubin,Total 0.3 mg/dL (0.3-1.0); Calcium 9.6 mg/dL (8.6-10.3); Globulin 3.7 g/dL (2.4-3.5); Phosphorous 9.7 mg/dL (2.7-4.5); Potassium 3.8 mEq/L (3.5-5.1); Total Protein 6.8 g/dL (6.4-8.9)
[2021-05-09] MEDS: Insulin LISPRO 300 UNITS/3 ML VIAL SUBQ SCH ×5 (05:03→23:51)
[2021-05-09] MEDS: FentaNYL (PF) 1,000 MCG/100 ML IV.SOLN IVC SCH ×3 (05:04→18:56)
[2021-05-09 07:31] LABS: Magnesium 2.8 mg/dL (1.6-2.6)
[2021-05-09] MEDS: Budesonide/Formoterol 160/4.5 1 PUFF INH IH SCH ×2 (07:34→19:37)
[2021-05-09] MEDS: Cholecalciferol (D-3) 1,000 UNIT (25MCG) TABLET PO SCH (08:02)
[2021-05-09] MEDS: Pantoprazole 40 MG VIAL IVP SCH (08:02)
[2021-05-09] MEDS: Chlorhexidine Rinse 15 ML MOUTHWASH MM SCH ×2 (08:02→19:35)
[2021-05-09] MEDS: Aspirin 81 MG TAB.CHEW GTUBE SCH (08:02)
[2021-05-09] MEDS: Heparin 25,000 UNIT/250 ML 25,000 UNIT/250 ML IV.SOLN IVC SCH (10:54)
[2021-05-09] MEDS: Phenylephrine 50 MG in 0.9 % Sodium Chloride 250 ML IVC SCH (18:55)
[2021-05-09] MEDS: Norepinephrine 4 MG/254 ML IV.SOLN IVC SCH ×3 (18:57→23:52)
[2021-05-09] MEDS: Insulin DETEMIR 100 UNIT/ML X5UNITS SUBQ SCH (19:37)
[2021-05-10] MEDS: FentaNYL (PF) 1,000 MCG/100 ML IV.SOLN IVC SCH ×4 (02:31→22:04)
[2021-05-10 03:21] LABS: ABG Base Excess -3 mEq/L (-2 to 3); ABG HCO3 23 mEq/L (21-27); ABG Oxygen Saturation 98 % (95-98); ABG PCO2 45 mmHg (35-45); ABG PH 7.33 pH Units (7.32-7.45); ABG PO2 105 mmHg (85-104); ABG TCO2 25 mEq/L (20-26); Blood Gas Modality ASSIST CONTROL; Blood Gas VT 380 cc
[2021-05-10] MEDS: Artificial Tears SOLN 15 ML BOTTLE BOTH EYES SCH ×6 (03:26→23:34)
[2021-05-10] MEDS: Insulin LISPRO 300 UNITS/3 ML VIAL SUBQ SCH ×6 (03:27→23:34)
[2021-05-10 03:42] LABS: Hematocrit 30.2 % (35.3-44.9); Hemoglobin 9.5 g/dL (11.5-15.4); Mean Corpuscular HGB Conc 31.5 g/dL (31.6-35.5); Mean Corpuscular Hemoglobin 27.1 pg (28.0-33.3); Mean Platelet Volume 9.7 fL (9.4-12.4); Platelet Count 191 K/mcL (140-400); Red Blood Count 3.51 M/mcL (3.82-4.97); Red Cell Distribution Width 13.9 % (11.5-14.5); White Blood Count 11.7 K/mcL (4.3-11.1)
[2021-05-10 03:55] LABS: Heparin anti-factor XA UFH 0.43 IU/mL (0.30-0.70)
[2021-05-10 04:03] LABS: Albumin/Globulin Ratio 0.9 (1.1-2.2); Bilirubin,Total 0.3 mg/dL (0.3-1.0); Calcium 9.2 mg/dL (8.6-10.3); Globulin 3.3 g/dL (2.4-3.5); Magnesium 2.9 mg/dL (1.6-2.6); Phosphorous 5.4 mg/dL (2.7-4.5); Potassium 3.5 mEq/L (3.5-5.1); Total Protein 6.3 g/dL (6.4-8.9)
[2021-05-10 04:05] LABS: VBG Ionized Calcium 1.21 mmol/L (1.15-1.35)
[2021-05-10] MEDS: Chlorhexidine Rinse 15 ML MOUTHWASH MM SCH ×2 (08:20→20:38)
[2021-05-10] MEDS: Aspirin 81 MG TAB.CHEW GTUBE SCH (08:20)
[2021-05-10] MEDS: Pantoprazole 40 MG VIAL IVP SCH (08:20)
[2021-05-10] MEDS: Cholecalciferol (D-3) 1,000 UNIT (25MCG) TABLET PO SCH (08:20)
[2021-05-10] MEDS: Norepinephrine 4 MG/254 ML IV.SOLN IVC SCH (10:56)
[2021-05-10] MEDS: Budesonide/Formoterol 160/4.5 1 PUFF INH IH SCH ×2 (11:04→21:44)
[2021-05-10] MEDS: Heparin 25,000 UNIT/250 ML 25,000 UNIT/250 ML IV.SOLN IVC SCH (14:03)
[2021-05-10] MEDS ORDERED: Furosemide 40 MG/4 ML VIAL IVP ONE ×2 (14:05→21:15)
[2021-05-10] MEDS: Albumin 25% 25gram/100mL 25 GM/100 ML IV.SOLN IVC SCH ×2 (14:43→16:44)
[2021-05-10] MEDS ORDERED: *HR* Metoprolol 5 MG/5 ML VIAL IVP ONE ×4 (16:30→18:49)
[2021-05-10] MEDS: Cisatracurium 200 MG in 0.9 % Sodium Chloride 180 ML IVC SCH (19:48)
[2021-05-10 19:49] LABS: ABG Base Excess -4 mEq/L (-2 to 3); ABG HCO3 24 mEq/L (21-27); ABG Oxygen Saturation 76 % (95-98); ABG PCO2 54 mmHg (35-45); ABG PH 7.25 pH Units (7.32-7.45); ABG PO2 48 mmHg (85-104); ABG TCO2 25 mEq/L (20-26); Blood Gas Modality AF; Blood Gas VT 380 cc
[2021-05-10] MEDS ORDERED: Albumin 25% 25gram/100mL 25 GM/100 ML IV.SOLN IVPB ONE (20:32)
[2021-05-10] MEDS: Insulin DETEMIR 100 UNIT/ML X5UNITS SUBQ SCH (20:39)
[2021-05-11] MEDS: Phenylephrine 50 MG in 0.9 % Sodium Chloride 250 ML IVC SCH ×5 (00:11→21:03)
[2021-05-11] MEDS: FentaNYL (PF) 1,000 MCG/100 ML IV.SOLN IVC SCH ×3 (03:43→18:30)
[2021-05-11] MEDS: Artificial Tears SOLN 15 ML BOTTLE BOTH EYES SCH ×5 (03:46→20:04)
[2021-05-11] MEDS: Insulin LISPRO 300 UNITS/3 ML VIAL SUBQ SCH ×5 (03:46→20:04)
[2021-05-11 04:20] LABS: Hematocrit 26.4 % (35.3-44.9); Hemoglobin 8.2 g/dL (11.5-15.4); Mean Corpuscular HGB Conc 31.1 g/dL (31.6-35.5); Mean Corpuscular Hemoglobin 27.6 pg (28.0-33.3); Mean Corpuscular Volume 88.9 fL (83.0-100.0); Mean Platelet Volume 9.4 fL (9.4-12.4); Platelet Count 129 K/mcL (140-400); Red Blood Count 2.97 M/mcL (3.82-4.97); Red Cell Distribution Width 14.6 % (11.5-14.5); White Blood Count 11.6 K/mcL (4.3-11.1)
[2021-05-11 04:22] LABS: VBG Ionized Calcium 1.17 mmol/L (1.15-1.35)
[2021-05-11 04:30] LABS: Uric Acid 5.5 mg/dL (2.3-7.6)
[2021-05-11 04:32] LABS: Albumin 3.6 g/dL (3.5-5.7); Albumin/Globulin Ratio 1.4 (1.1-2.2); Bilirubin,Total 0.8 mg/dL (0.3-1.0); Calcium 8.5 mg/dL (8.6-10.3); Globulin 2.5 g/dL (2.4-3.5); Phosphorous 4.2 mg/dL (2.7-4.5); Total Protein 6.1 g/dL (6.4-8.9)
[2021-05-11 05:20] LABS: ABG Base Excess -5 mEq/L (-2 to 3); ABG HCO3 22 mEq/L (21-27); ABG Oxygen Saturation 80 % (95-98); ABG PCO2 47 mmHg (35-45); ABG PH 7.27 pH Units (7.32-7.45); ABG PO2 50 mmHg (85-104); ABG TCO2 23 mEq/L (20-26); Blood Gas Modality AF; Blood Gas VT 380 cc
[2021-05-11] MEDS: Chlorhexidine Rinse 15 ML MOUTHWASH MM SCH ×2 (07:54→21:04)
[2021-05-11] MEDS: Cholecalciferol (D-3) 1,000 UNIT (25MCG) TABLET PO SCH (07:54)
[2021-05-11] MEDS: Pantoprazole 40 MG VIAL IVP SCH (07:54)
[2021-05-11] MEDS: Aspirin 81 MG TAB.CHEW GTUBE SCH (07:54)
[2021-05-11] MEDS: Budesonide/Formoterol 160/4.5 1 PUFF INH IH SCH ×2 (07:58→21:14)
[2021-05-11] MEDS: Cisatracurium 200 MG in 0.9 % Sodium Chloride 180 ML IVC SCH (09:49)
[2021-05-11] MEDS: Heparin 25,000 UNIT/250 ML 25,000 UNIT/250 ML IV.SOLN IVC SCH (09:49)
[2021-05-11] MEDS ORDERED: *HR* Heparin 5,000 UNIT/ML VIAL IVP PRN (10:33)
[2021-05-11] MEDS ORDERED: 0.9 % Sodium Chloride 1,000 ML PRIME SCH (10:45)
[2021-05-11] MEDS ORDERED: *HR* Heparin 5,000 UNIT/ML VIAL ONE (11:17)
[2021-05-11 11:23] LABS: Bilirubin,Urine Negative (Negative); Blood,Urine Large (Negative); Clarity,Urine Clear (Clear); Color,Urine Yellow (Yellow); Glucose,Urine (UA) Normal (Normal); Ketones,Urine Negative (Negative); Leukocyte Esterase,Urine Trace (Negative); Nitrite,Urine Negative (Negative); PH,Urine 5.5 pH Units (5.0-8.0); Protein,Urine 30 mg/dL (Neg-Trace); Urobilinogen,Urine Normal (Normal)
[2021-05-11 11:27] LABS: Bacteria,Urine Few per hpf (None-Few); Mucus,Urine Few per lpf (None-Few); RBC,Urine TNTC per hpf (0-3); WBC,Urine 15-30 per hpf (0-3)
[2021-05-11] MEDS: levoFLOXacin 500 MG/100 ML 500 MG/100 ML BAG IVPB SCH (12:07)
[2021-05-11] MEDS: PrismaSATE BGK 4/2.5 5,000 ML CRRT SCH ×4 (13:25→18:33)
[2021-05-11 14:21] LABS: ABG Base Excess -8 mEq/L (-2 to 3); ABG HCO3 20 mEq/L (21-27); ABG Oxygen Saturation 77 % (95-98); ABG PCO2 58 mmHg (35-45); ABG PH 7.16 pH Units (7.32-7.45); ABG PO2 53 mmHg (85-104); ABG TCO2 22 mEq/L (20-26); Blood Gas VT 380 cc
[2021-05-11 16:17] LABS: ABG Base Excess -5 mEq/L (-2 to 3); ABG HCO3 23 mEq/L (21-27); ABG Oxygen Saturation 82 % (95-98); ABG PCO2 54 mmHg (35-45); ABG PH 7.23 pH Units (7.32-7.45); ABG PO2 56 mmHg (85-104); ABG TCO2 24 mEq/L (20-26); Blood Gas VT 380 cc
[2021-05-11] MEDS: Insulin DETEMIR 100 UNIT/ML X5UNITS SUBQ SCH (21:14)
[2021-05-12] MEDS: Insulin LISPRO 300 UNITS/3 ML VIAL SUBQ SCH ×7 (00:10→23:30)
[2021-05-12] MEDS: Artificial Tears SOLN 15 ML BOTTLE BOTH EYES SCH ×7 (00:10→23:29)
[2021-05-12] MEDS: PrismaSATE BGK 4/2.5 5,000 ML CRRT SCH ×10 (00:11→21:16)
[2021-05-12] MEDS: FentaNYL (PF) 1,000 MCG/100 ML IV.SOLN IVC SCH ×4 (02:00→20:46)
[2021-05-12] MEDS: Phenylephrine 50 MG in 0.9 % Sodium Chloride 250 ML IVC SCH ×5 (02:45→23:12)
[2021-05-12 03:47] LABS: Hematocrit 25.7 % (35.3-44.9); Hemoglobin 7.9 g/dL (11.5-15.4); Mean Corpuscular HGB Conc 30.7 g/dL (31.6-35.5)
[2021-05-12 03:49] LABS: Immature Platelets 4.2 % (1.1-6.1); Mean Corpuscular Hemoglobin 27.2 pg (28.0-33.3); Mean Corpuscular Volume 88.6 fL (83.0-100.0); Mean Platelet Volume 10.4 fL (9.4-12.4); Red Blood Count 2.9 M/mcL (3.82-4.97); Red Cell Distribution Width 14.9 % (11.5-14.5); White Blood Count 8.4 K/mcL (4.3-11.1)
[2021-05-12 03:52] LABS: VBG Ionized Calcium 1.12 mmol/L (1.15-1.35)
[2021-05-12 04:07] LABS: Albumin 3.2 g/dL (3.5-5.7); Albumin/Globulin Ratio 1.1 (1.1-2.2); Bilirubin,Total 0.8 mg/dL (0.3-1.0); Globulin 2.8 g/dL (2.4-3.5); Magnesium 2.4 mg/dL (1.6-2.6); Phosphorous 3.1 mg/dL (2.7-4.5); Potassium 4.5 mEq/L (3.5-5.1)
[2021-05-12 04:17] LABS: ABG Base Excess -3 mEq/L (-2 to 3); ABG HCO3 23 mEq/L (21-27); ABG Oxygen Saturation 82 % (95-98); ABG PCO2 47 mmHg (35-45); ABG PO2 52 mmHg (85-104); ABG TCO2 24 mEq/L (20-26); Blood Gas Modality AF; Blood Gas VT 380 cc
[2021-05-12] MEDS: Cisatracurium 200 MG in 0.9 % Sodium Chloride 180 ML IVC SCH ×2 (06:13→16:25)
[2021-05-12] MEDS ORDERED: Ringers Solution, Lactated 500 ML ONE (07:34)
[2021-05-12] MEDS: Budesonide/Formoterol 160/4.5 1 PUFF INH IH SCH ×2 (07:51→19:37)
[2021-05-12] MEDS ORDERED: Albumin 25% 25gram/100mL 25 GM/100 ML IV.SOLN ONE (09:21)
[2021-05-12] MEDS ORDERED: Ringers Solution, Lactated 250 ML IVC PRN (09:24)
[2021-05-12] MEDS ORDERED: Albumin 25% 25gram/100mL 25 GM/100 ML IV.SOLN IVPB ONE (09:25)
[2021-05-12] MEDS: Norepinephrine 4 MG/254 ML IV.SOLN IVC SCH ×3 (09:45→19:06)
[2021-05-12] MEDS: Aspirin 81 MG TAB.CHEW GTUBE SCH (10:28)
[2021-05-12] MEDS: Chlorhexidine Rinse 15 ML MOUTHWASH MM SCH ×2 (10:28→20:46)
[2021-05-12] MEDS: Pantoprazole 40 MG VIAL IVP SCH (10:29)
[2021-05-12] MEDS: Cholecalciferol (D-3) 1,000 UNIT (25MCG) TABLET PO SCH (11:51)
[2021-05-12] MEDS: levoFLOXacin 500 MG/100 ML 500 MG/100 ML BAG IVPB SCH (11:51)
[2021-05-12] MEDS ORDERED: *HR* Metoprolol 5 MG/5 ML VIAL IVP ONE (14:21)
[2021-05-12] MEDS ORDERED: *HR* Metoprolol 5 MG/5 ML VIAL IVP PRN (14:28)
[2021-05-12] MEDS: Heparin 25,000 UNIT/250 ML 25,000 UNIT/250 ML IV.SOLN IVC SCH (20:59)
[2021-05-12] MEDS: Insulin DETEMIR 100 UNIT/ML X5UNITS SUBQ SCH (21:00)
[2021-05-13] MEDS: Norepinephrine 4 MG/254 ML IV.SOLN IVC SCH ×3 (00:58→10:52)
[2021-05-13] MEDS: PrismaSATE BGK 4/2.5 5,000 ML CRRT SCH ×4 (02:17→07:24)
[2021-05-13] MEDS: Cisatracurium 200 MG in 0.9 % Sodium Chloride 180 ML IVC SCH (02:25)
[2021-05-13 03:10] LABS: Hematocrit 22.9 % (35.3-44.9); Hemoglobin 7.2 g/dL (11.5-15.4); Immature Platelets 6.9 % (1.1-6.1); Mean Corpuscular HGB Conc 31.4 g/dL (31.6-35.5); Mean Corpuscular Hemoglobin 27.9 pg (28.0-33.3); Mean Corpuscular Volume 88.8 fL (83.0-100.0); Mean Platelet Volume 10.6 fL (9.4-12.4); Red Blood Count 2.58 M/mcL (3.82-4.97); Red Cell Distribution Width 15.1 % (11.5-14.5); White Blood Count 8.3 K/mcL (4.3-11.1)
[2021-05-13 03:16] LABS: Heparin anti-factor XA UFH 0.51 IU/mL (0.30-0.70)
[2021-05-13 03:22] LABS: BUN/Creatinine Ratio 16 (6-26); Blood Urea Nitrogen 16 mg/dL (6-20); Calcium 7.7 mg/dL (8.6-10.3); Carbon Dioxide 22 mEq/L (23-29); Chloride 101 mEq/L (98-107); Glucose 125 mg/dL (70-105); Osmolality,Calculated 283 (280-300); Sodium 135 mEq/L (136-145); eGFR For African Americans > 60 (> 60); eGFR For Non-African Americans 59 (> 60)
[2021-05-13] MEDS: Insulin LISPRO 300 UNITS/3 ML VIAL SUBQ SCH ×2 (03:29→07:56)
[2021-05-13] MEDS: Artificial Tears SOLN 15 ML BOTTLE BOTH EYES SCH ×2 (03:29→07:55)
[2021-05-13] MEDS: FentaNYL (PF) 1,000 MCG/100 ML IV.SOLN IVC SCH ×2 (04:04→10:38)
[2021-05-13] MEDS: Phenylephrine 50 MG in 0.9 % Sodium Chloride 250 ML IVC SCH ×2 (04:06→09:10)
[2021-05-13 04:32] LABS: ABG Base Excess -7 mEq/L (-2 to 3); ABG HCO3 20 mEq/L (21-27); ABG Oxygen Saturation 92 % (95-98); ABG PCO2 47 mmHg (35-45); ABG PH 7.24 pH Units (7.32-7.45); ABG PO2 74 mmHg (85-104); ABG TCO2 22 mEq/L (20-26); Blood Gas VT 380 cc
[2021-05-13] MEDS: Budesonide/Formoterol 160/4.5 1 PUFF INH IH SCH (07:35)
[2021-05-13] MEDS: Aspirin 81 MG TAB.CHEW GTUBE SCH (07:55)
[2021-05-13] MEDS: Chlorhexidine Rinse 15 ML MOUTHWASH MM SCH (07:55)
[2021-05-13] MEDS: Pantoprazole 40 MG VIAL IVP SCH (07:55)
[2021-05-13] MEDS: Cholecalciferol (D-3) 1,000 UNIT (25MCG) TABLET PO SCH (07:55)
[2021-05-13 08:10] VITALS: PULSE 113
[2021-05-13 08:26] VITALS: TEMP 97.3
[2021-05-13] MEDS ORDERED: *HR* LORazepam 2 MG/ML VIAL IVP PRN (11:04)
[2021-05-13 15:11] VITALS: BP 49/40; O2SAT 78
== END 2021-05-13 11:48 | disposition expired | DRG 870 ==
LOC: 3BNU 15:35 → EMEROOARM 15:35 → OBSVTOIN 21:05 → SUATTDRO 21:05 → 3BNU 21:06 → 2NENU 04-30 23:49 → ICNU 05-06 09:51
PROVIDERS: ADMIT Internal Medicine; ATTEND Internal Medicine